=== PATIENT | female | born 1980 | race Caucasian/White ===

== ENCOUNTER → 2017-01-30 | Outpatient (CLI) | payer OTHER ==
[~2017-01-30] MED LIST: CELE200C PO; LEVO50TA4 PO; SPRI28TA PO; VOLT1GEL4
--- NOTE | 2017-01-30 11:27 | RADRPT ---
EXAM DATE/TIME: 01/30/2017 10:37 [facility] COMPARISON: No previous studies available for comparison. INDICATIONS : Chronic left foot pain. MEDICAL HISTORY : Plantar fascitis. SURGICAL HISTORY : None. ENCOUNTER: Initial ACUITY: >1 year PAIN SCORE: 6/10 LOCATION: Left foot FINDINGS: No definite fractures, or dislocations are identified. No definite lytic or sclerotic lesion is seen . There are hypertrophic changes and chronic calcifications dorsal to the talocalcaneal joint chronic in nature. CONCLUSION: No definite fracture is seen for technique. KNorman Dela Cruz MD on January 30, 2017 at 11:25 Board Certified Radiologist. This report was verified electronically.
--- NOTE | 2017-01-30 11:30 | RADRPT ---
EXAM DATE/TIME: 01/30/2017 10:41 [facility] COMPARISON: No previous studies available for comparison. INDICATIONS : Chronic right foot pain. MEDICAL HISTORY : Plantar fascitis. SURGICAL HISTORY : None. ENCOUNTER: Initial ACUITY: >1 year PAIN SCORE: 7/10 LOCATION: Right foot FINDINGS: No definite fractures, dislocations, lytic, or sclerotic lesions are seen. There is irregularity of t he navicular bone may be due to old healed fracture. The joint spaces are well maintained. CONCLUSION: Probable old healed fracture of the navicular bone. Lorna Dela Cruz MD on January 30, 2017 at 11:28 Board Certified Radiologist. This report was verified electronically.
== END ==
LOC: HRAD 10:06
DX: M79.673 Pain in unspecified foot (principal)
CPT/HCPCS: 73630

== ENCOUNTER → 2017-09-04 | Outpatient (CLI) | payer OTHER ==
[~2017-09-04] MED LIST changes: -CELE200C PO; +DICL1KIT5 TOPICAL; +LEVO125T4 PO; -LEVO50TA4 PO; +MELO15TA20 PO; +VOLT1GEL16; -VOLT1GEL4
--- NOTE | 2017-09-04 10:28 | RADRPT ---
EXAM DATE/TIME: 09/04/2017 09:24 [facility] COMPARISON: No previous studies available for comparison. INDICATIONS : Goiter. MEDICAL HISTORY : Hypothyroidism. SURGICAL HISTORY : Pilonidal cyst removed. Gangleon cyst drained. Plantar faciitis surgery. ENCOUNTER: Initial ACUITY: 1 day PAIN SCORE: 0/10 LOCATION: Bilateral neck MEASUREMENTS: RIGHT LOBE: 3.8 x 1.5 x 2.3 cm LEFT LOBE: 4.5 x 1.4 x 1.9 cm FINDINGS: RIGHT LOBE: Inhomogeneous right lobe the 7 mm solid nodule. LEFT LOBE: Inhomogeneous left lobe without nodularity. ISTHMUS: Mildly prominent and inhomogeneous. CONCLUSION: Inhomogeneous thyroid, normal in size. The 7 mm solid nodule right lobe that can be followed by ultrasound. Jason Webb MD FACR on September 04, 2017 at 10:21 Board Certified Radiologist. This report was verified electronically.
== END ==
LOC: HRAD 08:57
DX: E04.9 Nontoxic goiter, unspecified (principal)
CPT/HCPCS: 76536

== ENCOUNTER → 2017-09-20 | Outpatient (CLI) | payer OTHER ==
--- NOTE | 2017-09-20 12:59 | RADRPT ---
EXAM DATE/TIME: 09/20/2017 07:41 [facility] COMPARISON: MRI ANKLE RIGHT W/O CONTRAST, September 20, 2017, 7:41. INDICATIONS : Right foot/ankle pain. MEDICAL HISTORY : None. SURGICAL HISTORY : Plantar fascitis sx. ENCOUNTER: Initial ACUITY: > 1 year PAIN SCORE: 5/10 LOCATION: Right foot. TECHNIQUE: Multiplanar, multisequence MRI examination was performed without contrast. FINDINGS: Bones of the right midfoot and forefoot are intact. Mild osteoarthritis involves Lisfranc joint and e ach metatarsophalangeal joint. No subluxations are seen. Ligaments and tendons are intact. Mildly ind urated distal plantar fascia without tear. There is fairly generalized, mild subcutaneous subcutaneou s edema without anything organized or drainable. CONCLUSION: Early/mild midfoot and forefoot degenerative changes and mild distal plantar fasciitis. No fracture, subluxation or tear/rupture. MRI of the right ankle and hindfoot to follow. Sukhdev Saucedo MD on September 20, 2017 at 11:40 Board Certified Radiologist. This report was verified electronically.
--- NOTE | 2017-09-20 12:59 | RADRPT ---
EXAM DATE/TIME: 09/20/2017 08:26 [facility] COMPARISON: No previous studies available for comparison. INDICATIONS : Left foot/ankle pain. MEDICAL HISTORY : None. SURGICAL HISTORY : Bilateral plantar fascitis sx. ENCOUNTER: Initial ACUITY: > 1 year PAIN SCORE: 5/10 LOCATION: Left lower extremity/left foot TECHNIQUE: Multiplanar, multisequence MRI examination was performed without contrast. FINDINGS: Multifocal left ankle and hindfoot osteoarthritis noted, moderate of the subtalar joint, especially t he posterior facet and generally mild to moderate elsewhere, especially talonavicular and navicular/c uneiform. No fracture or acute appearing malalignment. There is potential cartilaginous or fibrous co alition across the posterior facet of the subtalar joint. I don't see bony coalition. There is moderate arch collapse across the navicular/cuneiform joints. There is severe distal and ins ertional tendinosis with estimated 70% partial thickness, minimally retracted tearing of tibialis pos terior. Mild tendinosis and tenosynovitis of peroneus brevis and longus. No tear. Mild patchy thickening of the proximal plantar fascia. Mild thickening of distal Achilles. CONCLUSION: 1. Tendinosis, dysfunction and moderate to high grade partial tearing of tibialis posterior tendon. A rch collapse across the navicular/cuneiform joints. 2. Moderate subtalar and mild to moderate lilli-navicular osteoarthritic changes as above. Potential c artilaginous or fibrous coalition across the posterior facet of the subtalar joint. 3. Mild tendinosis/tenosynovitis of the peroneal tendons. No tear. 4. Minimal plantar fasciitis/fibromatosis. No tear. 5. Very mild tendinosis/peritendinitis of the distal Achilles. No tear. MRI of the left mid foot/ forefoot to follow. Sukhdev Saucedo MD on September 20, 2017 at 11:56 Board Certified Radiologist. This report was verified electronically.
--- NOTE | 2017-09-20 12:59 | RADRPT ---
EXAM DATE/TIME: 09/20/2017 08:26 [facility] COMPARISON: MRI ANKLE LEFT W/O CONTRAST, September 20, 2017, 8:26. FOOT LEFT COMPLETE ([id number]), January 30, 2017, 10:3 7. INDICATIONS : Left foot/ankle pain. MEDICAL HISTORY : None. SURGICAL HISTORY : Plantar fascitis sx. ENCOUNTER: Initial ACUITY: > 1 year PAIN SCORE: 5/10 LOCATION: Left foot. TECHNIQUE: Multiplanar, multisequence MRI examination was performed without contrast. FINDINGS: There is moderate severity Lisfranc osteoarthritis. There is associated subchondral marrow edema, mos tly the second and third tarsometatarsal joints. Mild hallux valgus noted. There is mild osteoarthrit is of the first metatarsophalangeal and interphalangeal joints. No fractures or subluxations are seen of the left midfoot or forefoot. Minimal patchy thickening of the plantar fascia. No tear. CONCLUSION: 1. 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 2. Slight hallux valgus. Mild osteoarthritis of the first metatarsophalangeal joint, sesamoids and al so the first interphalangeal joint. 3. Minimal plantar fasciitis/fibromatosis. No tear. Substantial bone and tendon abnormalities seen of the left ankle and hindfoot. Please refer to the [facility] MRI report. Sukhdev Saucedo MD on September 20, 2017 at 12:05 Board Certified Radiologist. This report was verified electronically.
--- NOTE | 2017-09-20 12:59 | RADRPT ---
EXAM DATE/TIME: 09/20/2017 07:41 [facility] COMPARISON: No previous studies available for comparison. INDICATIONS : Right foot/ankle pain. MEDICAL HISTORY : None. SURGICAL HISTORY : Plantar fascitis sx ENCOUNTER: Initial ACUITY: > 1 year PAIN SCORE: 5/10 LOCATION: Right foot TECHNIQUE: Multiplanar, multisequence MRI examination was performed without contrast. FINDINGS: No fracture is seen of the right ankle or hindfoot. There is mild ankle and moderate to severe subtal ar osteoarthritis. Subtalar osteoarthritis primarily involves the posterior facet and a fibrous or ca rtilaginous coalition as possible, for example series 12 image 14. Additional osteoarthritis noted, m oderate of the talonavicular and navicular/cuneiform a joints, mild of the calcaneocuboid joint. Patc hy reactive appearing subchondral marrow edema present, especially posterior facet of the subtalar jose m int. Moderate distal and insertional tendinosis is seen of tibialis posterior tendon. I don't see a tear/f luid-filled gap but there does appear to be some possible tendon dysfunction with mild arch collapse noted, especially navicular/cuneiform. Laterally, mild tendinosis and tenosynovitis seen of the peron eus brevis and longus. Mild thickening of the proximal plantar fascia. No tear. CONCLUSION: 1. Multifocal chronic arthropathy of the ankle and hindfoot as above. Possible fibrous or cartilagino us coalition of the posterior facet of the subtalar joint. 2. Mild arch collapse. There is distal and insertional tendinosis of tibialis posterior tendon withou t perceptible tear. 3. Very mild proximal plantar fasciitis/fibromatosis. No tear. 4. Mild tendinosis/tenosynovitis of the peroneus brevis and longus without tear. Sukhdev Saucedo MD on September 20, 2017 at 11:48 Board Certified Radiologist. This report was verified electronically.
== END ==
LOC: HRAD 07:12
PROVIDERS: ATTEND Family Medicine
DX: M79.671 Pain in right foot (principal)
CPT/HCPCS: 73718; 73721

== ENCOUNTER → 2017-10-29 | Outpatient (CLI) | payer OTHER ==
--- NOTE | 2017-10-29 07:57 | RADRPT ---
EXAM DATE/TIME: 10/29/2017 07:25 [facility] COMPARISON: No previous studies available for comparison. INDICATIONS : Low back pain. MEDICAL HISTORY : bulging discs in lumbar spine SURGICAL HISTORY : None. ENCOUNTER: Initial ACUITY: >1 year PAIN SCORE: 8/10 LOCATION: low back FINDINGS: 6 views of the lumbar spine demonstrate 5 nonrib-bearing lumbar vertebral bodies with mild leftward c onvex curvature. No fracture or compression deformity is present. There is no anterolisthesis, retrol isthesis, or pars defect. Mild decreased disc height is present at L2-L3 with endplate osteophytes. M inimal disc height loss is present at L3-L4. Small endplate osteophytes are present at multiple remai elvia levels. Facet joints demonstrate no significant abnormality. Pelvic bones, sacroiliac joints, and soft tissues demonstrate no acute finding. CONCLUSION: No acute lumbar spine abnormality is identified. There is mild levoscoliosis with degenerative disc d isease at L2-L3. Sukhdev Kohli MD on October 29, 2017 at 7:52 Board Certified Radiologist. This report was verified electronically.
== END ==
LOC: HRAD 07:09
DX: M47.896 Other spondylosis, lumbar region (principal)
CPT/HCPCS: 72110